=== PATIENT | male | born 1970 | race Caucasian/White ===

== ENCOUNTER → 2023-10-13 07:22 | Outpatient (REF) | payer OTHER, SELFPAY | LOC: DHCBS MAIN 07:22 | PROVIDERS: ATTENDING PHYSICIAN Internal Medicine Interventional Cardiology; FAMILY PHYSICIAN Family Medicine | DX: Z13.6 Encounter for screening for cardiovascular disorders (principal); R00.2 Palpitations; R06.09 Other forms of dyspnea; E78.2 Mixed hyperlipidemia; I10 Essential (primary) hypertension | CPT/HCPCS: 93306 ==

== ENCOUNTER → 2023-11-01 07:38 | Outpatient (REF) | payer OTHER, SELFPAY | LOC: RCS 07:38 | PROVIDERS: ATTENDING PHYSICIAN Internal Medicine Interventional Cardiology; FAMILY PHYSICIAN Family Medicine | DX: R00.2 Palpitations (principal); R06.09 Other forms of dyspnea; E78.2 Mixed hyperlipidemia; I10 Essential (primary) hypertension | CPT/HCPCS: 93017 ==